=== PATIENT | male | born 1960 | race African-American/Black ===

== ENCOUNTER → 2017-04-02 17:50 | Outpatient (CLI) | payer BC ==
[~2017-04-02 17:50] MED LIST: DIOVAN320 MG PO; ELIQUIS2.5 MG PO; FLOMAX0.4 MG PO; NORVASC10 MG PO; PERCOCET 10/3251 TA1 PO; PROSCAR5 MG PO; VITAMIN D5000 UNIT PO
[2017-04-21 19:59] VITALS: BMI 30.2
== END | disposition home or self-care (01) ==
LOC: D.LABREF 17:50
DX: M87.052 Idiopathic aseptic necrosis of left femur (principal); Z11.8 Encounter for screening for other infectious and parasitic diseases

== ENCOUNTER 2017-04-08 06:00 | Outpatient (CLI) | payer BC ==
[~2017-04-08 06:00] MED LIST changes: -ELIQUIS2.5 MG PO; -FLOMAX0.4 MG PO; -PERCOCET 10/3251 TA1 PO; -PROSCAR5 MG PO
[2017-04-08 12:26] LABS: BASOPHILS 0.3 % (0-2); EOSINOPHILS 2.2 % (0-7); HEMOGLOBIN 14.6 g/dL (13.5-17.5); IMMATURE GRANULOCYTES 0.1 % (0-5); LYMPHOCYTES 44.5 % (15-50); MCH 31.7 pg (26.0-34.0); MCV 93.3 fL (80.0-100.0); MEAN PLATELET VOLUME 10.1 fL (7.4-10.4); NEUTROPHILS 45.9 % (40-80); PLATELET COUNT 339 10x3/uL (130-400); RBC 4.61 10x6/uL (4.20-6.10); RDW 13.5 % (11.5-14.5); WBC 7.2 10x3/uL (4.8-10.8)
[2017-04-08 12:35] LABS: APTT 29.5 SECONDS (22.8-39.4); INR 0.98 (0.85-1.17); PROTIME 12.6 SECONDS (11.6-15.0)
[2017-04-08 12:37] LABS: ANION GAP 16.8 mmol/L (8-16); CALCIUM 9.5 mg/dL (8.5-10.1); CARBON DIOXIDE 24.4 mmol/L (21.0-32.0); CREATININE - SERUM 1.2 mg/dL (0.6-1.3); POTASSIUM - SERUM 4.2 mmol/L (3.5-5.1)
[2017-04-08 13:22] LABS: APPEARANCE CLEAR (CLEAR); BILIRUBIN NEGATIVE (NEGATIVE); COLOR YELLOW (YELLOW); GLUCOSE NEGATIVE (NEGATIVE); KETONE NEGATIVE (NEGATIVE); NITRITE NEGATIVE (NEGATIVE); PROTEIN NEGATIVE (NEGATIVE); SPECIFIC GRAVITY 1.015 (1.005-1.020); UROBILINOGEN NORMAL (NORMAL)
[2017-04-08 13:25] LABS: BACTERIA FEW /hpf (NONE SEEN); MUCUS <1+ /lpf (NONE SEEN); RED CELLS - URINE RARE /hpf (0-5); WHITE CELLS - URINE OCC /hpf (0-5)
[2017-04-08 13:27] LABS: EPITHELIAL CELLS 0-5 /hpf (0-5)
== END 2017-04-08 23:59 | disposition home or self-care (01) ==
LOC: D.OPS 06:00 → D.SDCHOLD 04-13 06:55 → EDUNIT# 04-13 09:45 → D.SDCHOLD 04-13 09:45 → EDSTATUS 04-13 10:00 → D.SDCHOLD 04-13 10:00
PROVIDERS: Orthopaedic Surgery
DX: M87.9 Osteonecrosis, unspecified (principal); Z01.810 Encounter for preprocedural cardiovascular examination; Z01.811 Encounter for preprocedural respiratory examination; Z01.812 Encounter for preprocedural laboratory examination; Z53.9 Procedure and treatment not carried out, unspecified reason

== ENCOUNTER 2017-04-20 10:06 | Inpatient (IN) | payer BC ==
[~2017-04-20] VITALS: Ht 193 cm; Wt 112.7 kg
[2017-04-20] VITALS (9 sets, daily range): BP systolic 116–139; BP diastolic 68–86; BMI 30.2
--- NOTE | ~2017-04-20 | OP ---
PATIENT NAME: KETURAH LARA MEDICAL RECORD: [id number] :62 LOCATION:[id number] ADMISSION DATE:04/20/17 SURGEON: TREVOR THOMAS MD DATE OF OPERATION: 04/20/2017 PREOPERATIVE DIAGNOSIS: Avascular necrosis of the left hip. POSTOPERATIVE DIAGNOSIS: Avascular necrosis of the left hip. PROCEDURE: Left total hip arthroplasty. SURGEON: Trevor Thomas MD ANESTHESIA: General. INTRAOPERATIVE COMPLICATIONS: None. SUMMARY OF PATHOLOGIC FINDINGS: The patient's left femoral head was essentially crumbling away with breaks in the osteochondral surface. IMPLANTS USED: [place] Anato hip system, size 7 femoral stem, -5 ceramic Biolox head, a size 60 Tritanium hemispherical cluster hole shell with a 36-mm alpha code F insert. Please note that Vitagel was used. OPERATIVE SUMMARY IN DETAIL: After obtaining the appropriate preoperative orthopedic surgery consent as well as anesthetic consultation, evaluation, and clearance, the patient was brought to the operating room and placed on the operating table in supine position. After general laryngeal mask airway was administered, the patient was placed in a right lateral decubitus position. All pressure points were well padded to include down leg peroneal nerve pad as well as axillary roll. The patient was held firmly to the operating table using the vacuum pack suction system. Left lower extremity and hip were then prepped and draped in routine sterile fashion. A curvilinear incision was made over the greater trochanter, taken down along the IT band, which was split in line with fibers of the IT band to reveal gluteus medius and minimus attachment. These were reflected anteriorly to reveal the hip capsule. The hip capsule was split in a T-type fashion and saved for later reapproximation. Dissection was carried down. The hip was dislocated. Femoral neck cut was made using the [employer] femoral neck cutting guide and then the hip was approached. Circumferential labrectomy was followed by reaming to 59. This was then followed by implantation of a size 60 cup with good fit and fill and no need for screws. Polyethylene insert was inserted and checked. Attention was then turned to the proximal femur. Serial and sequential reaming and broaching were done for a size 7 Anato stem. Size 7 Anato stem was put into place. Then, trial was undertaken and it was felt that the -5 was the most appropriate for tension and leg length. The -5 Biolox head was tamped into place, reduced, taken through range of motion, and found to be stable in all planes. Copious irrigation was followed by drying, then followed by spraying Vitagel into the entire wound. Hip capsule was closed with #2 Ethibond. This was followed by #5 Ethibond transosseous reapproximation of the gluteus medius and minimus. IT band was closed with #5 Ethibond as well. Intraoperative radiographs were taken at this point, showed good position and placement of all components with good retention of leg length. The skin was closed with #1 Vicryl followed by 2-0 Vicryl followed by skin ailyn. Sterile dressings were applied. The patient was awakened. LMA was removed. He was taken to recovery room in stable condition. OPERATIVE REPORT [id number] KETURAH LARA All final needle and sponge counts were correct. TRANSINT:[id number] Voice Confirmation ID: [id number] DOCUMENT ID: [id number] MARTHA ULRICH, TREVOR SANCHEZ at 0940 CC: [id number] DICTATION DATE: 04/20/17 180 POT FLUXER: 04/20/17 1855 DIS IN 04/22/17 [facility] [address] [facility] [place] [address]
[2017-04-21] VITALS (8 sets, daily range): BP systolic 102–139; BP diastolic 59–85; Ht 193 cm; Wt 112.7 kg
[2017-04-21 05:38] LABS: HEMATOCRIT 38.9 % (42.0-54.0); HEMOGLOBIN 12.6 g/dL (13.5-17.5); MCH 30.7 pg (26.0-34.0); MCHC 32.4 g/dL (31.0-37.0); MCV 94.6 fL (80.0-100.0); RBC 4.11 10x6/uL (4.20-6.10); RDW 13.9 % (11.5-14.5); WBC 8.5 10x3/uL (4.8-10.8)
[2017-04-22 02:54] VITALS: BP 124/64
[2017-04-22 05:31] VITALS: BP 110/50
[2017-04-22 06:17] LABS: HEMATOCRIT 34.8 % (42.0-54.0); HEMOGLOBIN 11.6 g/dL (13.5-17.5); MCHC 33.3 g/dL (31.0-37.0); MEAN PLATELET VOLUME 10.1 fL (7.4-10.4); RBC 3.74 10x6/uL (4.20-6.10); RDW 13.6 % (11.5-14.5); WBC 7.3 10x3/uL (4.8-10.8)
[2017-04-22 07:57] VITALS: BP 109/57
[2017-04-22] MEDS ORDERED: ELIQUIS2.5 MG PO (08:31)
[2017-04-22] MEDS ORDERED: FLOMAX0.4 MG PO (08:31)
[2017-04-22] MEDS ORDERED: PROSCAR5 MG PO (08:32)
[2017-04-22] MEDS ORDERED: PERCOCET 10/3251 TA1 PO (08:32)
== END 2017-04-22 15:48 | disposition home health service (06) | DRG 470 ==
LOC: D.MS 10:06 → D.SDCHOLD 10:06 → D.MS 18:27
PROVIDERS: Orthopaedic Surgery
PROC: 0SRB0JZ Replacement of Left Hip Joint with Synthetic Substitute, Open Approach (ICD-10-PCS; principal; 2017-04-20 13:00)
PROC: 0T9B70Z Drainage of Bladder with Drainage Device, Via Natural or Artificial Opening (ICD-10-PCS; 2017-04-21)
DX: M87.852 Other osteonecrosis, left femur (principal); I10 Essential (primary) hypertension; N40.1 Benign prostatic hyperplasia with lower urinary tract symptoms; R33.8 Other retention of urine; Z72.0 Tobacco use